=== PATIENT | female | born 2000 | race Caucasian/White ===

== ENCOUNTER 2025-06-01 11:37 | Emergency (ER) | payer OTHER ==
[~2025-06-01] VITALS: Ht 157.5 cm; Wt 64.0 kg
[2025-06-01 11:47] VITALS: O2SAT 98
[2025-06-01] MEDS: SODIUM CHLORIDE 0.9% (SEPSIS BOLUS) IV ONE (12:32)
[2025-06-01] MEDS: CEFTRIAXONE 1GM/50ML 50 ML IV ONE (12:33)
[2025-06-01] MEDS: ACETAMINOPHEN 325MG TABLET PO ONE ×2 (12:33→15:35)
[2025-06-01 12:43] LABS: BASOPHILS % 0.5 % (0.0-2.0); EOSINOPHILS % 1.1 % (0.0-5.0); HEMATOCRIT. 34.2 % (36.0-48.0); HEMOGLOBIN. 11.4 g/dL (12.0-16.0); LYMPHOCYTES % 18.4 % (20.0-50.0); MEAN PLATELET VOLUME 7.6 fl (7.4-10.4); MONOCYTES % 5.7 % (2.0-8.0); NEUTROPHILS % 74.3 % (40.0-76.0); PLATELET 230 x1000/uL (130-400); RED BLOOD CELL COUNT 3.74 mill/uL (4.2-5.4); RED CELL DISTRIBUTION WIDTH 14.0 % (11.6-14.6)
[2025-06-01 12:58] LABS: CREATININE 0.5 mg/dL (0.6-1.0); ETHANOL BLOOD < 10 mg/dL (<10); UREA NITROGEN BLOOD < 5 mg/dL (9-23)
[2025-06-01 12:59] LABS: PROTEIN TOTAL 6.5 g/dL (6.0-8.3)
[2025-06-01 13:00] LABS: ASPARTATE AMINOTRANSFERASE 22 IU/L (<34); BILIRUBIN DIRECT < 0.1 mg/dL (<=3.0); BILIRUBIN TOTAL 0.3 mg/dL (0.1-1.0)
[2025-06-01 13:02] LABS: HCG SCREEN POSITIVE
[2025-06-01 13:13] LABS: CLARITY URINE CLEAR (CLEAR); COLOR URINE YELLOW (YELLOW); GLUCOSE URINE NEGATIVE (NEGATIVE); KETONES URINE NEGATIVE (NEGATIVE); LEUKOCYTE ESTERASE URINE NEGATIVE (NEGATIVE); NITRITE URINE NEGATIVE (NEGATIVE); OCCULT BLOOD URINE NEGATIVE (NEGATIVE); PH URINE 7.5 (4.5-8.0); PROTEIN URINE NEGATIVE (NEGATIVE); SPECIFIC GRAVITY URINE 1.014 (1.005-1.030); UROBILINOGEN URINE 0.2 E.U./dL (0.2-1.0)
[2025-06-01 13:24] LABS: B-HCG QUANTITATIVE 15372 mIU/mL (<6)
[2025-06-01 13:25] LABS: INFLUENZA TYPE A Presumptive Negative (Pres. Neg.); INFLUENZA TYPE B Presumptive Negative (Pres. Neg.)
[2025-06-01] MEDS: AZITHROMYCIN 500MG/250ML 250 ML IV ONE (13:31)
[2025-06-01 13:33] LABS: INR 0.9
[2025-06-01 13:51] LABS: *AMPHETAMINES SCREEN URINE NEGATIVE (NEGATIVE); *BARBITURATES SCREEN URINE NEGATIVE (NEGATIVE); *BENZODIAZEPINES SCREEN URINE NEGATIVE (NEGATIVE); *COCAINE SCREEN URINE NEGATIVE (NEGATIVE)
[2025-06-01 13:52] LABS: CANNABINOID URINE SCREEN NEGATIVE (NEGATIVE); ECSTASY MDMA SCREEN URINE NEGATIVE (NEGATIVE); METHADONE URINE SCREEN NEGATIVE (NEGATIVE); OPIATES URINE SCREEN NEGATIVE (NEGATIVE); PHENCYCLIDINE URINE SCREEN NEGATIVE (NEGATIVE)
[2025-06-01 16:00] VITALS: BP 99/62; PULSE 100; RESP 16; TEMP 37.1; O2SAT 100
[2025-06-05 04:07] LABS: HSV TYPE 2 SPECIFIC AB IGG Reactive (Non Reactive)
== END 2025-06-01 16:15 | disposition short-term general hospital (02) ==
LOC: ER 12:08
DX: O99.512 Diseases of the respiratory system complicating pregnancy, second trimester (principal); O99.412 Diseases of the circulatory system complicating pregnancy, second trimester; Z3A.23 23 weeks gestation of pregnancy; Z79.899 Other long term (current) drug therapy; Z20.822 Contact with and (suspected) exposure to COVID-19; Z98.890 Other specified postprocedural states
CPT/HCPCS: 86695; 86696; 80076; 80305; 80048; 81003; 80320; 84703; 84702; 83605; 83690; 83735; 85025; 85610; 85730; 86850; 86900; 86901; 87340; 87040; 87086; 87804 ×2; 36415; 84145; 71045; 76815; 93005; 96367; 96365; 99291; 87426; J0456; J0696; J7030; G0480